=== PATIENT | male | born 1965 | race Caucasian/White ===

== ENCOUNTER 2018-12-13 12:46 | Emergency (ER) | payer MEDICAID, OTHER ==
[~2018-12-13] VITALS: Ht 170.2 cm; Wt 88.3 kg
[2018-12-13 12:50] VITALS: BP 148/89; PULSE 75; RESP 19; Ht 170.2 cm; Wt 88.3 kg
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
[2018-12-13] MEDS ORDERED: ACETAMINOPHEN 325 MG TAB PO ONE (13:30)
[2018-12-13] MEDS ORDERED: IBUPROFEN 200 MG TAB PO ONE (13:30)
[2018-12-13] MEDS ORDERED: LORAZEPAM 1 MG TAB PO ONE (13:30)
[2018-12-13] MEDS ORDERED: IBUP-1561 PO (13:45)
[2018-12-13] MEDS ORDERED: LORA-441 PO (13:45)
[2018-12-13] MEDS ORDERED: ACET325T33 PO (13:45)
== END 2018-12-13 14:57 | disposition home or self-care (01) ==
LOC: FTE 12:46
DX: S80.812A Abrasion, left lower leg, initial encounter (principal); S39.92XA Unspecified injury of lower back, initial encounter; S19.9XXA Unspecified injury of neck, initial encounter; V49.09XA Driver injured in collision with other motor vehicles in nontraffic accident, initial encounter
CPT/HCPCS: 72040; 72100; 73590; Z7502; Z7610